=== PATIENT | female | born 1995 ===

== ENCOUNTER → 2018-07-13 | Outpatient (CLI) | payer BC ==
[~2018-07-13] MED LIST: ETON1VAG7 VG; FLUC150T40 PO
== END ==
LOC: LAB 15:20
PROVIDERS: ATTEND Obstetrics & Gynecology
DX: N89.8 Other specified noninflammatory disorders of vagina (principal)

== ENCOUNTER → 2018-07-14 | Outpatient (CLI) | payer BC | LOC: LAB 09:40 | PROVIDERS: ATTEND Obstetrics & Gynecology | DX: N89.8 Other specified noninflammatory disorders of vagina (principal) | CPT/HCPCS: 87210 ==